=== PATIENT | female | born 1960 | race Caucasian/White ===

== ENCOUNTER → 2016-11-25 | Outpatient (CLI) | payer MEDICARE, MEDICAID ==
[~2016-11-25] MED LIST: ALPRAZOLAM1 MG PO; DICLOFENAC SODI75 M4 PO; FLUOXETINE20 MG PO; NEURONTIN800 MG PO; PROMETHAZINE HC25 M1 PO; PROTONIX 40MG T40 MG PO
--- NOTE | 2016-11-30 05:58 | RADIOLOGY REPORT PS360 ---
MRI-L-SPINE W/O, MRI-3D RENDERING/MYELOGRAM HISTORY: Left-sided low back pain with bilateral leg pain and numbness and tingling LUMBAGO WITH SCIATICA, LEFT SIDE ORDERING PHYSICIAN: Carson Aguirre MD PATIENT AGE: 56 years COMPARISON: None TECHNIQUE: Standard multiplanar multiecho sequences are performed without contrast. 3-D MIP and myelographic images are also rendered and reviewed FINDINGS: Normal alignment. The spinal cord ends at T12-L1 level. Slight reversal of lumbar lordosis T12-L1: Facet and ligamentous hypertrophic change on the right L1-L2: Unremarkable. L2-L3: Facet and ligamentum flavum hypertrophic change with bilateral lateral recess narrowing. Artifact from interpedicular screws at L3 with bilateral lateral recess narrowing and mild right foraminal narrowing along with mild narrowing of the spinal canal. L3-L4: Interpedicular screws at L3 and L4. Prominent decreased T1 and T2 signal within the disc space consistent with a disc spacer device present with some irregularity of the endplates. L4-5: Artifact from interpedicular screws at L4 and L5. There is endplate irregularity. Minimal bulging disc L5-S1: Unremarkable No disc herniation IMPRESSION: 1. Multilevel facet spondylosis as detailed in each level above with mild lateral recess narrowing. There is mild right foraminal narrowing at L2-L3 and borderline canal stenosis at L2-L3. 2. Postsurgical changes with endplate irregularity 3. No disc herniation evident
== END ==
LOC: RAD 09:30
DX: M54.42 Lumbago with sciatica, left side (principal)